=== PATIENT | male | born 1965 | race African-American/Black ===

== ENCOUNTER 2016-10-15 20:04 | Emergency (ER) | payer SELFPAY ==
[2016-10-15] MEDS ORDERED: Triple Antibiotic Oint 1 GM Packet ONE (21:36)
[2016-10-15] MEDS ORDERED: Adacel (T-DAP) 0.5 ML VIAL ONE (21:37)
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
--- NOTE | 2016-10-15 22:21 | PICIS ---
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 bony malleolar tenderness or posterior edge of malleoli, no 5th metatarsal or navicular tenderness. REmainder BLE nontender with full ROM. No swelling, bruising or deformities (except mild swelling without erythema or warmth at the left ankle - patient had left ankle surgery 2 months ago). Able to ambulate well in ED. + DP and PT pulses BLE, cap refill < 2 sec, sensation intact light touch BLE. NEURO: Neuro exam normal, [place] coma scale 15, Neuro exam findings include patient oriented to person, place and time, Speech normal, Gait normal, Memory normal, Cranial nerves intact, no focal motor deficits, no focal sensory deficits, no nystagmus. SKIN: Skin exam included findings of skin warm, dry, and normal in color. PSYCHIATRIC: Psychiatric exam included findings of patient oriented to person place and time, Normal affect, Remote memory &a-1R&a+25V*p+0X*[id number]*c202B*c15G*c2P*p-0X&a-25V&a+1R Name: Francesco Schultz : 1965 M51 MedRec: [id number] AcctNum: [id number] Prepared: [facility] Oct 16, 2016 01:43 by Interface Page 9 of 11 pMD [facility] EMERGENCY RECORD normal, Recent memory normal, Concentration normal, No suicidal ideations, No homicidal ideations. EVENTS TRANSFER: Triage to Emergency Emergency Room -05. (TueOct 15, 2016 20:16 KASA) Removed from Emergency Emergency Room -05. (22:05 [facility]) RADIOLOGYINTERPRETATION HEAD: Head CT negative, without contrast, no bleed, no mass, no acute ischemic stroke, no acute changes. (Sat Oct 16, 2016 01:33 JOHE) UPPER EXTERMITIES: Radiological interpretation of, the left shoulder shows, shoulder negative, no fracture, no dislocation, no foreign body, no bony lesion, no effusion, mild degenerative changes. (Sat Oct 16, 2016 01:33 JOHE) LOWER EXTREMITIES: Left ankle, no acute fracture or dislocation. Multiple old fractures s/p surgical fixation; pes planus - see radiology report for full details. 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 ([facility] Oct 16, 2016 01:33 ROBERT) DOCTOR NOTES ([facility] Oct 16, 2016 01:33 ROBERT) TEXT: Patient's abrasions cleaned and dressed. Discussed results, monitoring for signs of closed head injury, treatment for contusions, need for outpatient f/u, and warning signs for immediate return to ED. Note - Chart completed after patient discharge. DATA REVIEWED: Xray data reviewed. PROBLEM LIST No recorded problems DIAGNOSIS (21:54 ROBERT) FINAL: PRIMARY: abrasion of face, ADDITIONAL: contusion of face, contusion of left ankle, contusion of left shoulder. DISPOSITION PATIENT: Disposition Type: Discharge, Disposition: *Discharge Home, Condition: Good. (21:54 ROBERT) Patient left the department. (22:05 DEQUAN) INSTRUCTION (21:55 ROBERT) DISCHARGE: CONTUSION FACE NO WAKE UP, SHOULDER CONTUSION, ANKLE SPRAIN WITH XRAY. FOLLOWUP: Karine WILSON BRIAN, Orthopedic Surgery, [address] [place] [address] DR Joan REZA [facility] [id number], [phone], Follow up with Primary Care Physician in 2-3 days, Follow up with Specialist in 5 days. &a-1R&a+25V*p+0X*[id number]*c202B*c15G*c2P*p-0X&a-25V&a+1R Name: Francesco Schultz : 1965 M51 MedRec: [id number] AcctNum: [id number] Prepared: [facility] Oct 16, 2016 01:43 by Interface Page 10 of 11 pMD [facility] EMERGENCY RECORD SPECIAL: Follow-up with your PCP. PRESCRIPTION No recorded prescriptions IMAGING TETANUS CONSENT: Image captured from scanner. (21:51 GERALDO) *DISCHARGE INSTRUCTIONS RECEIPT: Image captured from scanner. ([facility] Oct 16, 2016 00:07 DEQUAN) *SUPPLY CHARGE SHEET: Image captured from scanner. ([facility] Oct 16, 2016 00:07 DEQUAN) ADMIN ([facility] Oct 16, 2016 01:34 ROBERT) DIGITAL SIGNATURE: MD Rocha John. Cedeno: ROBERT=MD Aj, Jj BAIRES=KIRILL Owusu, Lorena BREWER=TITO Beaulieu Kayce LEEW=KIRILL Davila, Geraldo &a-1R&a+25V*p+0X*[id number]*c202B*c15G*c2P*p-0X&a-25V&a+1R Name: Francesco Schultz : 1965 M51 MedRec: [id number] AcctNum: [id number] Prepared: Anand Oct 16, 2016 01:43 by Interface Page 11 of 11 pMD [facility]TD[facility]
== END 2016-10-15 22:02 | disposition home or self-care (01) ==
LOC: NAV ERS 20:04
DX: S00.83XA Contusion of other part of head, initial encounter (principal); S90.02XA Contusion of left ankle, initial encounter; S40.012A Contusion of left shoulder, initial encounter; I10 Essential (primary) hypertension; F17.210 Nicotine dependence, cigarettes, uncomplicated; X58.XXXA Exposure to other specified factors, initial encounter
CPT/HCPCS: 70450; 90471; 90715

== ENCOUNTER 2017-05-05 14:02 | Outpatient (CLI) | payer OTHER ==
--- NOTE | 2017-05-05 16:06 | RAD ---
TWO VIEWS RIGHT KNEE: INDICATION: Disability evaluation. FINDINGS: There is no evidence of acute or dislocation. Mild joint capsular distention is present. There are patellar enthesophytes. Otherwise, no significant arthropathy. IMPRESSION: 1. No acute osseous abnormality. 2. Additional findings as described above. POS: [facility]
--- NOTE | 2017-05-05 16:09 | RAD ---
TWO VIEW RIGHT ANKLE 05/05/17 INDICATION: Disability evaluation. FINDINGS: There is mild osteophytosis of the right ankle without fracture or dislocation. Mortise is intact. N o significant soft tissue swelling. IMPRESSION: Mild degenerative change of the right ankle, without acute osseous abnormality. POS: [facility]
== END 2017-05-05 14:03 | disposition home or self-care (01) ==
LOC: NAV RAD 14:02
PROVIDERS: ATTEND Family Medicine
DX: Z02.71 Encounter for disability determination (principal)

== ENCOUNTER 2020-04-28 10:59 | Emergency (ER) | payer OTHER, SELFPAY ==
[2020-04-28 11:26] LABS: #Basophils 0.1 thou/uL (0.0-0.2); #Eosinphils 0.1 thou/uL (0.0-0.7); #Lymphocytes 2.2 thou/uL (1.20-3.40); #Monocytes 0.7 thou/uL (0.11-0.59); #Neutrophils 2.1 thou/uL (1.40-6.50); %Basophils 1.1 % (0.0-1.0); %Eosinophils 2.3 % (0.0-10.0); %Lymphocytes 43.1 % (21.0-51.0); %Monocytes 12.5 % (0.0-10.0); Hemoglobin 13.2 g/dL (14.0-18.0); Mean Corpuscular HGB CONC 32.1 g/dL (32.0-36.0); Mean Corpuscular Hemoglobin 28.4 pg (27.0-31.0); Mean Corpuscular Volume 88.5 fL (78.0-98.0); Mean Platelet Volume 8.6 fL (7.4-10.4); Platelet Count 233 thou/uL (130-400); RBC Distribution Width 12.7 % (11.5-14.5); Red Blood Cell (RBC) Count 4.67 mill/uL (4.70-6.10); White Blood Cell (WBC) Count 5.2 thou/uL (4.8-10.8)
[2020-04-28] MEDS ORDERED: Fentanyl 100 MCG/2 ML VIAL ONE (11:29)
[2020-04-28 11:32] LABS: Prothrombin Time 13.6 sec (12.0-14.7)
[2020-04-28 11:43] LABS: ALT (SGPT) 15 U/L (8-55); AST (SGOT) 19 U/L (5-34); Albumin 4.4 g/dL (3.5-5.0); Alkaline Phosphatase 78 U/L (40-110); Anion Gap 16 mmol/L (10-20); BUN (Urea Nitrogen) 18 mg/dL (8.4-25.7); Bilirubin, Total 0.4 mg/dL (0.2-1.2); Calc. Creatinine Clearance 0 mL/min (70-130); Calcium 9.2 mg/dL (7.8-10.44); Carbon Dioxide 21 mmol/L (22-29); Chloride 104 mmol/L (98-107); Estimated GFR-MDRD 85; Globulin 3.1 g/dL (2.4-3.5); Glucose 95 mg/dL (70-105); Potassium 3.4 mmol/L (3.5-5.1); Protein, Total 7.5 g/dL (6.0-8.3); Sodium 138 mmol/L (136-145)
--- NOTE | 2020-04-28 12:01 | CT ---
CT CHEST WITHOUT CONTRAST CLINICAL INDICATION: Trauma to chest. Patient was working under truck common truck rolled over chest. COMPARISON: None FINDINGS: Aorta: Lack of intravenous contrast limits sensitivity for evaluation of the vascular structures. Min imal vascular ossification are seen in the thoracic aorta. Lungs: Clear without evidence of consolidation or pleural effusion. No pneumothorax is visualized. Mi nimal dependent atelectasis is present at each lung base. Mediastinum: Limited due to lack of intravenous contrast, but no definite enlarged lymph node is seen . Thyroid gland: Right lobe of thyroid gland demonstrates a normal nonenhanced CT appearance. Left lobe of thyroid gland is very small in size or absent. Osseous structures: Remote fracture involving the left anterolateral fourth rib. No acute fracture is seen. Mild degenerative changes are seen in the spine. Chest wall: No abnormality visualized. Upper abdomen: 1.7 cm low-density lesion superior pole right kidney which is difficult to adequately characterize on this nonenhanced CT scan exam, but the attenuation coefficient on this nonenhanced CT study does suggest a cyst. Remainder the visualized upper abdomen demonstrates a grossly normal no nenhanced CT appearance aside from minimal vascular calcifications in the abdominal aorta. IMPRESSION: 1. Limited examination due to lack of intravenous contrast. However, no acute findings are seen on t his nonenhanced CT scan exam. 2. Hypodense right superior pole renal lesion statistically likely related to a cyst.
== END 2020-04-28 12:58 | disposition home or self-care (01) ==
LOC: NAV ERS 10:59
DX: S51.011A Laceration without foreign body of right elbow, initial encounter (principal); S20.211A Contusion of right front wall of thorax, initial encounter; F17.210 Nicotine dependence, cigarettes, uncomplicated; I10 Essential (primary) hypertension; V04.09XA Pedestrian with other conveyance injured in collision with heavy transport vehicle or bus in nontraffic accident, initial encounter
CPT/HCPCS: 12001; 71250; 80053; 84484; 85025; 85610; 93005; 94760; 96374; J3010